=== PATIENT | female | born 1985 | race Caucasian/White ===

== ENCOUNTER → 2016-06-04 12:20 | Outpatient (CLI) | payer MEDICAID ==
[2016-06-04 13:14] LABS: BILIRUBIN - INDIRECT 0.16 mg/dL (0.00-1.00); BILIRUBIN - TOTAL 0.2 mg/dL (0.2-1.3)
[2016-06-04 13:16] LABS: BILIRUBIN - DIRECT 0.04 mg/dL (0.00-0.30)
[2016-06-05 08:21] LABS: HEPATITIS C ANTIBODY <0.1 (0.0-0.9)
== END | disposition home or self-care (01) ==
LOC: D.LAB 12:20
PROVIDERS: Internal Medicine Gastroenterology
DX: R11.2 Nausea with vomiting, unspecified (principal); R10.13 Epigastric pain; R74.8 Abnormal levels of other serum enzymes